=== PATIENT | male | born 1990 | race Asian ===

== ENCOUNTER 2018-04-15 06:55 | Emergency (ER) | payer OTHER ==
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
== END 2018-04-15 07:43 | disposition home or self-care (01) ==
LOC: JD.ED 06:55
DX: Z04.1 Encounter for examination and observation following transport accident (principal)
CPT/HCPCS: 99281; 99284